=== PATIENT | female | born 1940 | race Caucasian/White ===

== ENCOUNTER 2019-01-22 19:56 | Emergency (ER) | payer OTHER ==
[~2019-01-22] VITALS: Ht 152.4 cm; Wt 64.9 kg
[2019-01-22 20:05] VITALS: BP_SYST 117
--- NOTE | 2019-01-22 20:05 | NUR ---
Patient to ER bed 6 to gown for evaluation. Side rails up. Report given from MIESHA Haider.
[2019-01-22] MEDS ORDERED: MECL-110 PO (20:13)
[2019-01-22] MEDS ORDERED: AMLO2.5T2 PO (20:13)
[2019-01-22] MEDS ORDERED: NEU300 PO (20:13)
--- NOTE | 2019-01-22 20:13 | NUR ---
Medication reconciliation completed with information provided by Patient with prescription bottles. Any prior medication reconciliation on file was reviewed and corrected.
--- NOTE | 2019-01-22 20:15 | NUR ---
Pt came to ED for one epsiode of forgetfulness yesterday after waking up from a nap. Reports that her forgetfulness resolved yesterday. Reports she deonte to [facility] ER yesterday but left due to a long wait time. Reports she woke up witha mild L sided REYES. Denies n/v/d or fever. No other complaints/injuries noted. Will cont. to monitor.
--- NOTE | 2019-01-22 20:30 | NUR ---
ER at bedside examining patient.
--- NOTE | 2019-01-22 21:06 | NUR ---
Note orion in [facility] - 01/23/19 at 0558 by [email or web address] Transfer to [facility] via ACLS protocol. Licensed nurse present. IV present no signs or symptoms of infiltration.
[2019-01-22 21:26] LABS: BASOPHILS # (AUTO) 0.1 K/uL (0.0-0.2); BASOPHILS % (AUTO) 0.7 % (0.0-2.0); EOSINOPHILS # (AUTO) 0.2 K/uL (0.0-0.4); EOSINOPHILS % (AUTO) 3.3 % (0.0-4.0); HEMOGLOBIN 12.3 g/dL (12.0-16.0); LYMPHOCYTES # (AUTO) 2.7 K/uL (1.0-5.5); LYMPHOCYTES % (AUTO) 36.6 % (20.5-51.5); MEAN CORPUSCULAR HEMOGLOBIN 32 pg (27-31); MEAN CORPUSCULAR HGB CONC 33 % (32-36); MEAN CORPUSCULAR VOLUME 95 fL (79.0-98.0); MONOCYTES # (AUTO) 0.6 K/uL (0.0-1.0); MONOCYTES % (AUTO) 8.2 % (1.7-9.3); NEUTROPHILS # (AUTO) 3.7 K/uL (1.8-7.7); NEUTROPHILS % (AUTO) 51.2 % (40.0-70.0); PLATELET COUNT (AUTO) 220 K/uL (130-430); RED CELL DISTRIBUTION WIDTH 13.4 % (9.0-15.0); WHITE BLOOD COUNT (AUTO) 7.2 K/uL (4.8-10.8)
[2019-01-22 21:44] LABS: ANION GAP 7 (5-15); CALCIUM 9.2 mg/dL (8.4-11.0); CHLORIDE 104 mmol/L (98-107); CREATININE 1.09 mg/dL (0.55-1.30); GLUCOSE 103 mg/dL (70-99); POTASSIUM 4.2 mmol/L (3.5-5.1); SODIUM SERUM 136 mmol/L (136-145); UREA NITROGEN, BLOOD 27 mg/dL (8-21)
[2019-01-22 21:49] LABS: ALANINE AMINOTRANSFERASE 23 U/L (12-78); ALBUMIN 3.5 g/dL (3.4-4.8); ASPARTATE AMINOTRANSFERASE 21 U/L (10-37); TOTAL BILIRUBIN 0.2 mg/dL (0.0-1.0)
--- NOTE | 2019-01-22 22:00 | NUR ---
Pt resting comfortably in bed, no signs of acute distress. Will cont. to monitor.
[2019-01-22 23:31] VITALS: BP_SYST 117
--- NOTE | 2019-01-22 23:31 | NUR ---
Patient given written and verbal discharge instructions and verbalizes understanding. ER MD Dr. Martinez discussed with patient the results and treatment provided. Patient in stable condition. ID arm band removed. IV catheter removed intact and dressing applied, no active bleeding. Patient educated on pain management and to follow up with PMD. Pain Scale 0/10. Opportunity for questions provided and answered. Medication side effect fact sheet provided.
== END 2019-01-22 23:31 | disposition home or self-care (01) ==
LOC: SED 19:56
DX: R41.3 Other amnesia (principal); E11.9 Type 2 diabetes mellitus without complications; I10 Essential (primary) hypertension; Z79.899 Other long term (current) drug therapy
CPT/HCPCS: 36415; 70450-TC; 80053; 84484; 85025; 93005; 99284